=== PATIENT | male | born 2000 | race Caucasian/White ===

== ENCOUNTER 2023-01-08 11:35 | Emergency (ER) | payer BC, SELFPAY ==
--- NOTE | ~2023-01-08 | XR_ITS ---
XR foot RT min 3V 01/08/2023 12:00 INDICATION: Right foot pain PROCEDURE: 3 views right foot COMPARISON: No prior studies for comparison. FINDINGS: Fracture, dislocation or subluxation is not identified. Lisfranc joint intact. The soft tis sues appear within normal limits. No foreign bodies are identified. IMPRESSION: 1: NO ACUTE BONE OR JOINT ABNORMALITY IDENTIFIED. Reviewed, dictated and finalized at location L.
[2023-01-08 11:47] VITALS: BP 118/69; PULSE 76; RESP 14; TEMP 37.3; O2SAT 97
[2023-01-08 11:51] VITALS: BP 118/69; PULSE 76; RESP 14; TEMP 37.3; O2SAT 97
--- NOTE | 2023-01-08 12:01 | ED.LOWEXIN ---
HPI - Extremity Injury (Lower) General Chief Complaint: Extremity Injury, Lower Stated Complaint: right foot pain Time Seen by Provider: 01/08/23 11:47 Source: patient Mode of arrival: ambulatory Limitations: no limitations History of Present Illness HPI Narrative: this is a 22-year-old male that presents with right foot pain has been going on for a month no recent injury pain in the lateral aspect of his right foot when he puts weight on it with no bruising no swelling just point tenderness with no numbness or tingling. Patient states that he had a foot fracture as a child, otherwise has not tried any recent pain medication. MD complaint: foot injury Injury: Right: foot Severity: moderate Severity scale (1-10): 6 Related Data Home Medications Medication Instructions Recorded Confirmed albuterol 90 mcg/actuation aerosol 90 mcg inhalation PRN PRN 01/08/23 01/08/23 inhaler Shortness Of Breath Or Wheezing Allergies Allergy/AdvReac Type Severity Reaction Status Date / Time No Known Allergies Allergy Verified 01/08/23 11:50 Review of Systems Review of Systems: All systems reviewed & are unremarkable except as noted in HPI and below PMFSH Past Medical History Medical History Patient denies medical problems Exam Const: General: healthy appearing Nutritional Appearance: well nourished Limitations: no limitations HENMT: Head: normal to inspection Eyes: Conjunctivae: conjunctivae normal Neck: Neck: normal visual inspection Chest: Chest palpation & inspection: normal inspection of the chest Resp: Effort & Inspection: normal respiratory effort Auscultation: clear to auscultation bilaterally Cardio: Rate: regular rate Rhythm: regular rhythm GI: GI Palp: Yes Soft to palpation Skin: Rashes: no rashes Wounds: no wounds Neuro: General: patient oriented x3 and moves all extremities Extrem: General: normal to inspection Other: tenderness lateral aspect of his right foot Psych: Mental Status: mental status grossly normal Affect: normal affect Course Course Emergency Course: patient received 60mg IM Toradol, and x-ray reviewed and no acute fractures. Vital Signs Vital signs: Vital Signs Temperature 37.3 C 01/08/23 11:47 Pulse Rate 76 01/08/23 11:47 Respiratory Rate 14 01/08/23 11:47 Blood Pressure 118/69 01/08/23 11:47 Pulse Oximetry 97 01/08/23 11:47 Oxygen Delivery Room Air 01/08/23 11:47 Temperature 37.3 C 01/08/23 11:51 Pulse Rate 76 01/08/23 11:51 Respiratory Rate 14 01/08/23 11:51 Blood Pressure 118/69 01/08/23 11:51 Pulse Oximetry 97 01/08/23 11:51 Oxygen Delivery Room Air 01/08/23 11:51 Critical Care Time Critical Care Time Critical Care Time: No Discharge Plan Discharge Clinical Impression: Other sprain of right foot, initial encounter Patient Disposition: Home, Self-Care Condition: Stable Instructions: Antibiotic Form, Foot Sprain (ED) Additional Instructions: continue Jaswinder wrap and take medicine as prescribed follow up with primary if symptoms persist or worsen. Prescriptions: New naproxen 500 mg tablet 500 mg PO BID PRN (Reason: pain) Qty: 14 0RF No Action albuterol 90 mcg/actuation Aerosol 90 mcg INHALATION PRN PRN (Reason: Shortness Of Breath Or Wheezing) Follow-up/Referrals: UNKNOWN,DOCTOR [Primary Care Provider] - Time of Disposition: 12:35
[2023-01-08] MEDS: KETOROLAC (*BKC) 60 MG/2 ML VIAL IM (12:05)
[2023-01-08 12:37] VITALS: BP 118/69; PULSE 76; RESP 14; TEMP 37.3; O2SAT 97
== END 2023-01-08 12:43 | disposition home or self-care (01) ==
LOC: CHSED 12:32
PROVIDERS: Emergency Provider Emergency Medicine
DX: S93.601A Unspecified sprain of right foot, initial encounter (principal); X58.XXXA Exposure to other specified factors, initial encounter
CPT/HCPCS: 73630; 96372; 99283; J1885

== ENCOUNTER 2025-01-26 11:51 | Emergency (ER) | payer BC, SELFPAY ==
--- NOTE | ~2025-01-26 | XR_ITS ---
EXAMINATION: XR elbow LT min 3V DATE: 01/26/2025 12:19 INDICATION: Left elbow injury. TECHNIQUE: Anteroposterior, two oblique and lateral views of the left elbow were obtained. COMPARISON: None. FINDINGS: Alignment is normal. No fracture or joint effusion. Joint spaces are normal. Soft tissues are unremar kable. IMPRESSION: 1. Normal left elbow radiographs. Reviewed, dictated and finalized at location B.
[2025-01-26 11:55] VITALS: BP 113/66; PULSE 66; RESP 18; TEMP 36.3; O2SAT 98
--- NOTE | 2025-01-26 12:28 | ED.UPPEXIN ---
HPI - Extremity Injury (Upper) General Chief Complaint: Extremity Injury, Upper Stated Complaint: L elbow down to fingers is numb after injury Time Seen by Provider: 01/26/25 12:08 Source: patient Mode of arrival: ambulatory Limitations: no limitations History of Present Illness HPI narrative: 24 years old white male came to the ED by private car complaining of pain at the left elbow and numbness of the left forearm. 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 No other injuries. Related Data Home Medications ?Medication ?Instructions ?Recorded ?Confirmed ?Last Taken ?Type albuterol 90 mcg/actuation aerosol 90 mcg inhalation PRN PRN 01/08/23 01/08/23 Unknown History inhaler Shortness Of Breath Or Wheezing Allergies Allergy/AdvReac Type Severity Reaction Status Date / Time No Known Allergies Allergy Verified 01/26/25 11:58 Review of Systems Review of Systems: All systems reviewed & are unremarkable except as noted in HPI and below PMFSH Past Medical History Medical History Patient denies medical problems Exam Narrative: General appearance: Well-developed, well-nourished Skin: Normal color Head: Normocephalic, nontraumatic Eyes: Clear conjunctiva ENT: Oropharynx normal, ears normal, nose normal Neck: Supple, nontender Chest and respiratory: Airway patent, no respiratory distress, no accessory muscle use Heart: Regular rate/rhythm Abdomen: Soft, nontender, no organomegaly, quiet bowel sounds Vascular: Normal peripheral pulses, normal capillary refill. Musculoskeletal: Left elbow exam showed no bruises, no swelling, no deformity, slight diffuse tenderness posteriorly, with range of motion Neurologic: Alert and oriented ?3, [employer] TENDER is normal as tested, no gross motor deficit Course Vital Signs Vital signs: Vital Signs Temperature 36.3 C L 01/26/25 11:55 Pulse Rate 66 01/26/25 11:55 Respiratory Rate 18 01/26/25 11:55 Blood Pressure 113/66 01/26/25 11:55 Pulse Oximetry 98 01/26/25 11:55 Oxygen Delivery Room Air 01/26/25 11:55 Temperature 36.3 C L 01/26/25 11:55 Pulse Rate 66 01/26/25 11:55 Respiratory Rate 18 01/26/25 11:55 Blood Pressure 113/66 01/26/25 11:55 Pulse Oximetry 98 01/26/25 11:55 Oxygen Delivery Room Air 01/26/25 11:55 MDM - Extremity Injury (Upper) MDM Narrative Medical decision making narrative: Differential diagnosis in elbow contusion, fracture X-ray showed no acute osseous abnormality Discharged on Tylenol, ibuprofen as needed and sling Differential Diagnosis Differential diagnosis: Likely fracture of humerus and other (Elbow contusion) Imaging Data Radiologist's impression: Impressions Elbow X-Ray 01/26/25 12:29 IMPRESSION: 1. Normal left elbow radiographs. Critical Care Time Critical Care Time Critical Care Time: No Discharge Plan Discharge Clinical Impression: Contusion of elbow Patient Disposition: Home Condition: Stable Instructions: Contusion in Adults (ED) Additional Instructions: Return if symptoms are worsening , call your family physician for appointment, take Tylenol, ibuprofen as as needed for aches and pain, continue home medications. Patient Language: [place] Prescriptions: No Action albuterol 90 mcg/actuation Aerosol 90 mcg INHALATION PRN PRN (Reason: Shortness Of Breath Or Wheezing) naproxen 500 mg tablet 500 mg PO BID PRN (Reason: pain) Qty: 14 0RF Follow-up/Referrals: UNKNOWN,DOCTOR [Primary Care Provider] -
--- OUTSIDE RECORDS SUMMARY | 2025-01-26 12:29 | XMS_ITS | Clinical Summary ---
Author Organization [facility] Address [facility] [place] [address] Care Team Providers Care Glassware Maker Name Role Phone Samira Randolph MD Unavailable Lucas Beckford MD Primary Care Provider [phone]- [phone] Allergies No known active allergies Medications albuterol (ACCUNEB) 0.63 MG/3ML nebulizer solution Take 3 mLs (0.63 mg total) by nebulization every 6 (six) hours as needed for Wheezing. 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/2019 Family History Medical History Relation Comments Heart Disease Father Hypertension Father Relation Status Comments Father Social History Tobacco Use Types Packs/Day Years Used Date Smoking Tobacco: Former Cigarettes Electronic Cigarettes Smokeless Tobacco: Current Tobacco Cessation:Ready to Q uit: Not Asked; Counseling Given: Not Answered Alcohol Use Standard Drinks/Week Comments Yes 0 (1 standard drink = 0.6 oz pur e alcohol) occassionally AUDIT-C Answer Date Recorded Frequency of Alcohol Consumption Never 04/16/2019 Average Number of Drinks Not on file 019 Frequency of Binge Drinking Not on file 03/28 Sex and Gender Information Value Date Recorded Sex Assigned at Male 08/15/2024 3:31 PM GLEASON OPERATOR Legal Sex Male 10:42 PM GLEASON OPERATOR Gender Identity Not on file Sexual Orientation Not on file Last Filed Vital Signs Vital Sign Reading Time Taken Comments Blood Pressure 143/69 08/15/2024 3:27 PM GLEASON OPERATOR Pulse 80 08/15/2024 3:27 PM GLEASON OPERATOR Temperature 37.1 C (98.7 F) 08/15/2024 3:27 PM GLEASON OPERATOR Respiratory Rate 16 08/15/2024 3:27 PM GLEASON OPERATOR Oxygen Saturation 100% 08/15/2024 3:27 PM GLEASON OPERATOR Inhaled Oxygen Concentration - - Weight 73.5 kg (162 lb) 08/15/2024 3:27 PM GLEASON OPERATOR Height 172.7 cm (5' 8) 08/15/2024 3:27 PM GLEASON OPERATOR Body Mass Index 24.63 08/15/2024 3:27 PM GLEASON OPERATOR Plan of Treatment Health Maintenance Due Date Last Done Comments Annual Physical 10/22/2003 DTaP, Tdap and Td Vaccines (6 - Tdap) 10/22/2011 01/01/2006, 01/18/2002, 05/18/2001, Additional history exists HPV Vaccines (2 - Male 2-dose series) 08/24/2015 02/21/2015 Hepatitis C 2018 Hepatitis B Vaccines (1 of 3 - 19+ 3-dose series) 10/22/2019 COVID-19 Vaccine ( - season) 2024 Meningococcal Vaccine Aged Out 02/21/2015 No arianna jennifer eligible based on patient's age to complete this topic Meningococcal B Vaccine Aged Out No l onger eligible based on patient's age to complete this topic Pneumococcal Vaccine: Pediatrics (0 to 5 Years) and At-Risk Patients (6 to 49 Years) Aged Out No longer eligible based on patient's age to complete this topic RSV Immunizations Under 20 Months Aged Out No longer eligible based on patient's age to complete this topic Insurance [facility] Advance Directives * Full Code (Latest Code Status on File) Date Activated Date Inactivated Comments 01/21/2019 7:27 PM 01/26/2019 9:09 PM Care Teams Glassware Maker Relationship Specialty Start Date End Date Lucas Beckford MD [address] [place] [phone] PCP - General FAMILY PRACTICE 10/28/20 Samira Randolph MD Consulting Physician INFECTIOUS DISEASE 01/25/19
--- OUTSIDE RECORDS SUMMARY | 2025-01-26 12:29 | XMS_ITS | Encounter Summary ---
Author Organization [facility] Address [facility] [place] [address] Care Team Providers Care Digital Solution Architect Name Role Phone Dk March MD Primary Care Provider [phone] Dk March MD Primary Care Provider [phone] Samira Randolph MD Unavailable Lucas Beckford MD Primary Care Provider Encounter Details Date Type Department Care Team (Late st Contact Info) Description 01/01/2019 Abstract SFL CONVERSION [address] [place] [address] , Generic Conversion, Social History Tobacco Use Types Packs/Day Years Used Date Smoking Tobacco: Never Assessed Sex and Gender Information Value Date Recorded Sex Assigned at Male 08/15/2024 3:31 PM GRAIN DRIER Legal Sex Male 10:42 PM GRAIN DRIER Gender Identity Not on file Sexual Orientation Not on file documented as of this encounter Plan of Treatment Not on file documented as of this encounter Visit Diagnoses Not on filedocumented in this encounter Additional Health Concerns Infection Onset Date Last Indicated Resolved Time COVID-19 Rule Out 10/28/2020 10/28/2020 10/28/2020 3:16 PM CDT documented as of this encounter Care Teams Digital Solution Architect Relationship Specialty Start Date End Date Dk March MD [address] [place] [phone] PCP - General FAMILY PRACTICE 01/09/19 01/20/19 Dk March MD [address] [place] [phone] PCP - General FAMILY PRACTICE 01/21/19 10/27/20 Lucas Beckford MD [address] [place] [phone] PCP - General FAMILY PRACTICE 10/28/20 Samira Randolph MD [address] [place] [phone] Consulting Physician INFECTIOUS DISEASE 01/25/19 documented as of this encounter
== END 2025-01-26 13:13 | disposition home or self-care (01) ==
PROVIDERS: Emergency Provider Emergency Medicine
DX: S50.02XA Contusion of left elbow, initial encounter (principal); W19.XXXA Unspecified fall, initial encounter
CPT/HCPCS: 73080; 99283; A4565